=== PATIENT | female | born 1935 | race Caucasian/White ===

== ENCOUNTER → 2018-01-07 | Outpatient (CLI) | payer MEDICARE ==
[~2018-01-07] MED LIST: ALPR0.5T7 PO; ASP81EC PO; BACL10TA PO; DOXY-216 PO; HYDR-531 PO; HYDR25TA35 PO; LEVO-28 PO; LISI-707 PO; OXYB5SYP4 PO; PANT40TA2 PO; ROPI0.5T18 PO; SACC250C PO; SERT-160 PO
[2018-01-07 15:44] LABS: Basophils # (auto) 0 uL; Basophils % (auto) 0.6 % (0.0-2.0); Eosinophils # (auto) 0.1 uL; Eosinophils % (auto) 2.5 % (0.0-7.0); Hemoglobin 12.7 g/dL (12.2-16.2); Lymphocytes # (auto) 1.9 uL; Lymphocytes % (auto) 35.1 % (10.0-50.0); Mean Corpuscular Hemoglobin 31.9 pg (28.0-32.0); Mean Corpuscular Hgb Conc. 33.5 g/dL (32.0-36.0); Mean Corpuscular Volume 95.1 fL (80.0-100.0); Monocytes # (auto) 0.6 uL; Neutrophils # (auto) 2.7 uL; Neutrophils % (auto) 49.8 % (37.0-80.0); Nucleated Red Blood Cells % 0.1 %; Platelet Count (auto) 194 10^3/uL (140-450); Red Blood Cells 3.99 10^6/uL (4.0-5.20); Red Cell Distribution Width 13.6 % (11.8-14.3); White Blood Cell 5.4 10^3/uL (4.4-10.8)
[2018-01-07 15:52] LABS: Urine Bacteria NONE SEEN /hpf (None Seen); Urine Blood 1+ /uL (Negative); Urine Mucus FEW (None Seen); Urine Specific Gravity 1.019 (1.001-1.035); Urine WBC 7 /hpf (0 - 5)
[2018-01-07 15:54] LABS: INR 0.96 (0.9-1.15); Partial Thromboplastin Time 27.5 sec (22.64-33.71); Prothrombin Time 10.5 sec (9.37-12.3)
[2018-01-07 16:14] LABS: Albumin 3.9 g/dL (3.4-5.0); BUN/Creatinine Ratio 17.6; Bilirubin, Total 0.5 mg/dL (0.2-1.0); Potassium 3.9 mmol/L (3.5-5.1); Total Protein 7.1 g/dL (6.4-8.2)
== END | disposition home or self-care (01) ==
LOC: LAB 14:49
PROVIDERS: ATTEND Orthopaedic Surgery
DX: S83.242A Other tear of medial meniscus, current injury, left knee, initial encounter (principal); M12.262 Villonodular synovitis (pigmented), left knee; M71.22 Synovial cyst of popliteal space [Baker], left knee; Z79.01 Long term (current) use of anticoagulants; X58.XXXA Exposure to other specified factors, initial encounter; Y93.89 Activity, other specified; Y92.89 Other specified places as the place of occurrence of the external cause; Y99.8 Other external cause status
CPT/HCPCS: 36415; 80053; 81001; 85025; 85610; 85730

== ENCOUNTER 2019-02-09 04:48 | Inpatient (IN) | payer MEDICARE | END 2019-02-11 18:43 | disposition home or self-care (01) | LOC: ER 04:48 → TELE 10:24 → TELE-WESTW 17:30 | PROC: B2151ZZ Fluoroscopy of Left Heart using Low Osmolar Contrast (ICD-10-PCS; principal; ~2019-02-09) | PROC: 4A023N7 Measurement of Cardiac Sampling and Pressure, Left Heart, Percutaneous Approach (ICD-10-PCS; ~2019-02-09) | PROC: B2111ZZ Fluoroscopy of Multiple Coronary Arteries using Low Osmolar Contrast (ICD-10-PCS; ~2019-02-09) | DX: I21.4 Non-ST elevation (NSTEMI) myocardial infarction (principal); J96.90 Respiratory failure, unspecified, unspecified whether with hypoxia or hypercapnia; N17.0 Acute kidney failure with tubular necrosis; I11.9 Hypertensive heart disease without heart failure; J44.9 Chronic obstructive pulmonary disease, unspecified; F32.9 Major depressive disorder, single episode, unspecified; F41.9 Anxiety disorder, unspecified; E78.5 Hyperlipidemia, unspecified; Z99.81 Dependence on supplemental oxygen; K21.9 Gastro-esophageal reflux disease without esophagitis ==

== ENCOUNTER 2019-02-23 08:34 | Inpatient (IN) | payer MEDICARE ==
[~2019-02-23] VITALS: Ht 160 cm; Wt 57.0 kg
[~2019-02-23 08:34] MED LIST changes: +ATOR20TA50 PO; +CLOP75TA28 PO; +HYDR-4296 PO; -HYDR25TA35 PO
[2019-02-23 09:14] LABS: Basophils # (auto) 0.1 uL; Basophils % (auto) 1.1 % (0.0-2.0); Eosinophils # (auto) 0 uL; Eosinophils % (auto) 0.5 % (0.0-7.0); Hematocrit 40.4 % (36.0-46.0); Hemoglobin 13.3 g/dL (12.2-16.2); Lymphocytes # (auto) 1.3 uL; Lymphocytes % (auto) 15.7 % (10.0-50.0); Mean Corpuscular Hemoglobin 31.5 pg (28.0-32.0); Mean Corpuscular Hgb Conc. 32.9 g/dL (32.0-36.0); Mean Corpuscular Volume 95.5 fL (80.0-100.0); Monocytes # (auto) 0.6 uL; Monocytes % (auto) 7.1 % (0.0-12.0); Neutrophils # (auto) 6.2 uL; Neutrophils % (auto) 75.6 % (37.0-80.0); Platelet Count (auto) 312 10^3/uL (140-450); Red Blood Cells 4.23 10^6/uL (4.0-5.20); Red Cell Distribution Width 13.7 % (11.8-14.3); White Blood Cell 8.3 10^3/uL (4.4-10.8)
[2019-02-23] MEDS ORDERED: OXYC-102 PO (09:26)
[2019-02-23] MEDS ORDERED: METO25TA5 PO (09:26)
[2019-02-23] MEDS ORDERED: FENT25DI2 TD (09:26)
[2019-02-23] MEDS ORDERED: OXYB5TAB61 PO (09:26)
[2019-02-23] MEDS ORDERED: PANT40T PO (09:26)
[2019-02-23 09:41] LABS: INR 0.96 (0.9-1.15); Partial Thromboplastin Time 26.4 sec (23.78-33.04); Prothrombin Time 10.3 sec (9.27-12.13)
[2019-02-23 09:49] LABS: BUN/Creatinine Ratio 15.6; Calcium 9.4 mg/dL (8.5-10.1); Potassium 4.3 mmol/L (3.5-5.1)
[2019-02-23] MEDS ORDERED: MIDAZOLAM HCL 1MG/1ML-2 ML VIAL IV ONE (09:50)
[2019-02-23] MEDS ORDERED: fentaNYL CITRATE 100 MCG/2 ML VL IV ONE (09:50)
[2019-02-23] MEDS ORDERED: MIDAZOLAM HCL 1MG/1ML-2 ML VIAL ONE (09:54)
[2019-02-23] MEDS ORDERED: fentaNYL CITRATE 100 MCG/2 ML VL ONE (10:12)
[2019-02-23] MEDS ORDERED: THROMBIN (BOVINE) 5000 UNIT SOL VIAL ONE (10:22)
[2019-02-23] MEDS ORDERED: THROMBIN (BOVINE) 5000 UNIT SOL VIAL TP ONE (10:30)
[2019-02-23] MEDS ORDERED: ONDANSETRON HCL 4 MG/2 ML VIAL IV PRN (11:15)
[2019-02-23] MEDS ORDERED: MORPHINE SULF INJ 2 MG/ML SYRINGE 1ML IV PRN (11:15)
[2019-02-23] MEDS ORDERED: ALPRAZolam 0.5 MG TAB PO PRN (11:15)
[2019-02-23] MEDS ORDERED: ACETAMINOPHEN 500 MG TAB PO PRN (11:15)
[2019-02-23] MEDS ORDERED: NITROGLYCERIN 0.4 MG SL TAB SL PRN (11:15)
[2019-02-23] MEDS ORDERED: ROPINIROLE HYDROCHLORIDE 1 MG PO PRN (11:15)
[2019-02-23] MEDS ORDERED: fentaNYL 25MCG/HR 25 MCG/HR PAT TD SCH (11:45)
--- NOTE | 2019-02-23 12:15 | NUR ---
MS admit from [employer] In[employer] VARGHESE REGALADO admitted to MS after SBAR received. Patient oriented to Jennifer osullivan RN, unit, room, bed, and unit policies regarding patient care and visiting hours. Patient weighed by bedscale and encouraged to call if they need something. All questions and concerns addressed, patient verbalized understanding. Pulse checked to right foot, pulse palpable and strong.
[2019-02-23 13:13] VITALS: BP 153/67
[2019-02-23] MEDS: OXYCODONE W/ ACETAMINOPHEN 5/325MG TABLET PO PRN (13:49)
[2019-02-23] MEDS: SODIUM CHLOR 0.9% PF (SALINE LOCK) 10ML VIAL/SYR IV SCH ×2 (14:11→22:02)
--- NOTE | 2019-02-23 18:38 | NUR ---
END OF SHIFT PATIENT RESTING IN BED. NO S/S OF DISTRESS. INSTRUCTED PATIENT TO CALL PRN. BED IN LOWEST LOCKED POSITION, CALL LIGHT WITHIN REACH. ENDORSED CARE TO LAMBERT HANCOCK.
--- NOTE | 2019-02-23 19:40 | NUR ---
Opening Shift Note Assumed care of patient, awake and alert. No S/S of distress/SOB or pain. Instructed on POC and to call for assist PRN. Bed in lowest locked position, call light within reach, side rails up x2, fall precautions in place. Will continue to monitor for changes Q1hr and PRN.
[2019-02-23 21:38] VITALS: BP 152/68
[2019-02-23] MEDS: METOPROLOL TARTRATE 25 MG TAB PO SCH (22:00)
[2019-02-23] MEDS ORDERED: ATORVASTATIN 20 MG TAB PO SCH (22:00)
[2019-02-23] MEDS: OXYBUTYNIN CHL 5 MG TAB PO SCH (22:03)
[2019-02-23] MEDS: hydrALAZINE HCL 25 MG TAB PO SCH (22:03)
[2019-02-23] MEDS: BACLOFEN 10 MG TAB PO PRN (22:04)
[2019-02-24] MEDS: SODIUM CHLOR 0.9% PF (SALINE LOCK) 10ML VIAL/SYR IV SCH ×2 (06:00→13:59)
[2019-02-24] MEDS: OXYCODONE W/ ACETAMINOPHEN 5/325MG TABLET PO PRN ×2 (06:42→14:45)
[2019-02-24 09:00] VITALS: BP 181/78
[2019-02-24] MEDS: hydrALAZINE HCL 25 MG TAB PO SCH (09:29)
[2019-02-24] MEDS: OXYBUTYNIN CHL 5 MG TAB PO SCH (09:29)
[2019-02-24] MEDS: METOPROLOL TARTRATE 25 MG TAB PO SCH (09:30)
[2019-02-24] MEDS ORDERED: PANTOPRAZOLE 40 MG TAB PO SCH (10:00)
[2019-02-24] MEDS ORDERED: ASPirin-EC 81 mg tab PO SCH (10:00)
[2019-02-24] MEDS ORDERED: CLOPIDOGREL BISULFATE 75 MG TAB PO SCH (10:00)
[2019-02-24] MEDS ORDERED: SERTRALINE HCL 50 MG TAB PO SCH (10:00)
[2019-02-24 13:00] VITALS: BP 127/56
[2019-02-24 14:31] VITALS: BP 187/78
[2019-02-24] MEDS: BACLOFEN 10 MG TAB PO PRN (16:27)
== END 2019-02-24 17:45 | disposition home or self-care (01) | DRG 301 ==
LOC: CATH 08:34 → CENTRAL 12:25
PROVIDERS: ADMIT Internal Medicine; ATTEND Internal Medicine
PROC: 3E053GC Introduction of Other Therapeutic Substance into Peripheral Artery, Percutaneous Approach (ICD-10-PCS; principal; 2019-02-23)
DX: I72.4 Aneurysm of artery of lower extremity (principal); G89.29 Other chronic pain; I10 Essential (primary) hypertension; I25.10 Atherosclerotic heart disease of native coronary artery without angina pectoris; B19.20 Unspecified viral hepatitis C without hepatic coma; J44.9 Chronic obstructive pulmonary disease, unspecified; I73.9 Peripheral vascular disease, unspecified; E78.5 Hyperlipidemia, unspecified; I25.2 Old myocardial infarction; Z95.5 Presence of coronary angioplasty implant and graft; Z82.49 Family history of ischemic heart disease and other diseases of the circulatory system; Z87.891 Personal history of nicotine dependence; Z79.82 Long term (current) use of aspirin; Z79.899 Other long term (current) drug therapy; Z88.1 Allergy status to other antibiotic agents; Z88.0 Allergy status to penicillin; Z88.8 Allergy status to other drugs, medicaments and biological substances
CPT/HCPCS: 36415; 76937; 80048; 85025; 85610; 85730; 87081; 93926; G0378; J2250

== ENCOUNTER → 2019-04-13 | Outpatient (CLI) | payer MEDICARE ==
[~2019-04-13] MED LIST changes: -DOXY-216 PO; +FENT25DI2 TD; -HYDR-531 PO; -LEVO-28 PO; -LISI-707 PO; +METO25TA5 PO; -OXYB5SYP4 PO; +OXYB5TAB61 PO; +OXYC-102 PO; +PANT40T PO; -PANT40TA2 PO; -SACC250C PO
== END | disposition home or self-care (01) ==
LOC: Rad HDHVI 14:06
PROVIDERS: ATTEND Internal Medicine
DX: I70.202 Unspecified atherosclerosis of native arteries of extremities, left leg (principal)
CPT/HCPCS: 93926

== ENCOUNTER → 2019-05-10 | Outpatient (CLI) | payer MEDICARE | END | disposition home or self-care (01) | LOC: Rad HDHVI 15:08 | PROVIDERS: ATTEND Internal Medicine Cardiovascular Disease | DX: I82.401 Acute embolism and thrombosis of unspecified deep veins of right lower extremity (principal); M71.22 Synovial cyst of popliteal space [Baker], left knee | CPT/HCPCS: 93970 ==

== ENCOUNTER 2019-06-28 21:33 | Emergency (ER) | payer MEDICARE ==
[~2019-06-28] VITALS: Ht 149.9 cm; Wt 45.6 kg
[~2019-06-28 21:33] MED LIST changes: -FENT25DI2 TD
[2019-06-28 22:32] VITALS: BP 186/66
[2019-06-28 22:59] LABS: Basophils # (auto) 0 uL; Basophils % (auto) 0.5 % (0.0-2.0); Eosinophils # (auto) 0.1 uL; Eosinophils % (auto) 2.5 % (0.0-7.0); Hematocrit 38.4 % (36.0-46.0); Hemoglobin 12.6 g/dL (12.2-16.2); Lymphocytes # (auto) 1.7 uL; Lymphocytes % (auto) 32.6 % (10.0-50.0); Mean Corpuscular Hgb Conc. 32.9 g/dL (32.0-36.0); Mean Corpuscular Volume 94.2 fL (80.0-100.0); Monocytes # (auto) 0.6 uL; Neutrophils # (auto) 2.8 uL; Neutrophils % (auto) 53.4 % (37.0-80.0); Platelet Count (auto) 185 10^3/uL (140-450); Red Blood Cells 4.07 10^6/uL (4.0-5.20); Red Cell Distribution Width 15.6 % (11.8-14.3); White Blood Cell 5.2 10^3/uL (4.4-10.8)
[2019-06-28 23:15] LABS: Albumin 3.7 g/dL (3.4-5.0); BUN/Creatinine Ratio 18.7; Potassium 3.7 mmol/L (3.5-5.1)
[2019-06-28 23:20] LABS: Bilirubin, Total 0.4 mg/dL (0.2-1.0); Total Protein 6.7 g/dL (6.4-8.2)
== END 2019-06-28 21:41 | disposition left against medical advice (07) ==
LOC: ER 21:36
DX: R03.0 Elevated blood-pressure reading, without diagnosis of hypertension (principal); Z53.21 Procedure and treatment not carried out due to patient leaving prior to being seen by health care provider
CPT/HCPCS: 36415; 80053; 83880; 84484; 85025; 85379; 85610; 85730

== ENCOUNTER → 2019-06-29 | Outpatient (CLI) | payer MEDICARE ==
[2019-06-29 12:00] VITALS: BP 177/62
[2019-06-29 12:25] VITALS: BP 181/62
--- NOTE | 2019-06-29 12:25 | NUR ---
IN TO CLINIC FOR BP CHECK AFTER ER ELOPEMENT LAST NIGHT. PT REPORTS FEELING WEAK AND IS TEARY EYED WHEN DESCRIBING HER SYMPTOMS. PT BROUGHT MEDICATION FROM HOME FOR HYPERTENSION BUT MEDICATION IS FROM APRIL OF 2016. PT REPORTS THAT SHE HAS APPOINTMENT WITH DR QUINTANA FOR TOMORROW AT 1415. REVIEWED LABS AND STATUS WITH PATIENT. ENCOURAGED TO CONTINUE TAKING HER MEDICATION PRESCRIBED NOW AND TO KEEP STRESS AND ACTIVITY LOW AND FOLLOWUP WITH DR QUINTANA TOMORROW. PT TO ALSO NOT MISS DOSES OF PAIN MEDICATION SHE HAS STATED SHE HAS NOT BEEN TAKING MEDICATION REGULARLY. DISCHARGED TO CARE OF DAUGHTER IN NO DISTRESS OR DISCOMFORT .
== END | disposition home or self-care (01) ==
LOC: CHF HDHVI 11:51
PROVIDERS: ATTEND Internal Medicine Cardiovascular Disease
DX: I10 Essential (primary) hypertension (principal); F41.8 Other specified anxiety disorders; G89.29 Other chronic pain
CPT/HCPCS: G0463

== ENCOUNTER → 2019-07-05 | Outpatient (CLI) | payer MEDICARE ==
[~2019-07-05] MED LIST changes: +CLON0.1T PO; +[UNRECOGNIZED DRUG - CODE] OP
[2019-07-05 11:50] VITALS: BP 157/49
--- NOTE | 2019-07-05 11:50 | NUR ---
PT. TO [facility]F CLINIC WITH CAREGIVER AFTER CONTINUED BRADYCARDIA. PT STATES SHE DENIES DIZZINESS, JUST FEELS TIRED. HEMODYNAMICALLY STABLE WITH B/P, BUT PULSE AT 42 /MIN. PT. STATES SHE TOOK METOPROLOL THIS AM, SAYING IT WAS PRINTED ON BOTTLE TO TAKE IF B/P WAS GREATER THAN 170 SYSTOLIC. PT. HAS PREVIOSLY BEEN INSTRUCTED BY DR. QUINTANA TO HOLD METOPROLOL UNTIL HR IMPROVED, AND THIS WAS ENDORSED BY THIS RN, AND HOME HEALTH RN LAST SAT. ON VISIT. PRESENT CAREGIVER WILL TAKE PICS OF BOTH OF THIS MED AND ALSO CLONIDINE 0.1MG PO TID PRN IF SBP GREATER THAN 170, WHICH WAS THE ORDER FROM DR. QUINTANA. NEW ORDERS RECEIVED AND CARRIED OUT.
--- NOTE | 2019-07-05 12:10 | NUR ---
EKG DONE WITH RESULTS TO DR. QUINTANA AND RECENT MED REC NON COMPLIANCE BY PT. NO FURTHER ORDERS RECEIVED SINCE PT. IS HEMODYNAMICALLY STABLE.
--- NOTE | 2019-07-05 12:20 | NUR ---
LABS DRAWN AND SENT PER MD ORDER.
[2019-07-05 12:40] VITALS: BP 158/63
--- NOTE | 2019-07-05 12:40 | NUR ---
Discharge Instructions See e-MAR for any mediations given with this visit. Patient education given on disease process. Patient verbalized understanding. Previous labs reviewed. Patient discharged in stable condition with after care instructions and follow up appointment. PT. TO RTC ON THURSDAY FOR PRE OP.
[2019-07-05 13:39] LABS: Basophils # (auto) 0 uL; Basophils % (auto) 0.6 % (0.0-2.0); Eosinophils # (auto) 0.1 uL; Eosinophils % (auto) 1.4 % (0.0-7.0); Hematocrit 35.2 % (36.0-46.0); Hemoglobin 11.6 g/dL (12.2-16.2); Lymphocytes # (auto) 1.6 uL; Lymphocytes % (auto) 38.4 % (10.0-50.0); Mean Corpuscular Hemoglobin 31.2 pg (28.0-32.0); Mean Corpuscular Hgb Conc. 33.1 g/dL (32.0-36.0); Mean Corpuscular Volume 94.3 fL (80.0-100.0); Monocytes # (auto) 0.6 uL; Monocytes % (auto) 13.2 % (0.0-12.0); Neutrophils % (auto) 46.4 % (37.0-80.0); Nucleated Red Blood Cells % 0.4 %; Platelet Count (auto) 154 10^3/uL (140-450); Red Blood Cells 3.73 10^6/uL (4.0-5.20); Red Cell Distribution Width 15.3 % (11.8-14.3); White Blood Cell 4.2 10^3/uL (4.4-10.8)
[2019-07-05 13:55] LABS: Albumin 3.3 g/dL (3.4-5.0); BUN/Creatinine Ratio 22.3; Calcium 8.3 mg/dL (8.5-10.1); Magnesium 2.5 mg/dL (1.6-2.6); Potassium 4.2 mmol/L (3.5-5.1)
[2019-07-05 13:58] LABS: Bilirubin, Total 0.3 mg/dL (0.2-1.0); Total Protein 6.4 g/dL (6.4-8.2)
== END | disposition home or self-care (01) ==
LOC: CHF HDHVI 11:37
PROVIDERS: ATTEND Internal Medicine Cardiovascular Disease
DX: D64.9 Anemia, unspecified (principal); E83.40 Disorders of magnesium metabolism, unspecified; R00.1 Bradycardia, unspecified; I25.10 Atherosclerotic heart disease of native coronary artery without angina pectoris; I11.9 Hypertensive heart disease without heart failure; R94.31 Abnormal electrocardiogram [ECG] [EKG]
CPT/HCPCS: 36415; 80053; 82306; 83735; 85025; 93005; G0463

== ENCOUNTER → 2019-07-08 | Outpatient (CLI) | payer MEDICARE ==
[2019-07-08 11:30] VITALS: BP 181/85
[2019-07-08 12:12] VITALS: BP 184/72
--- NOTE | 2019-07-08 12:12 | NUR ---
IN FOR PRE-OP EVALUATION FOR [facility] TO BE DONE ON 07/13/19. PT WAS SEEN BY DR QUINTANA THIS WEEK WITH KNOWN BRADYCARDIA AND KNOWN HYPERTENSION. MD REPORTS THAT BP MED TO BE CHANGED POST PROCEDURE, AWARE OF JUST ON SHORT ACTING MED FOR BP CURRENTLY ( REPORTED BY MONICA, AND PT IS CURRENTLY HOLDING METOPROLOL). OF CURRENTLY, 2 DOSES HELD. CAREGIVER IN ATTENDANCE. Pre-Op Discharge Summary: See e-MAR for any medications given for this visit. Pre-op orders received and carried out per MD of EKG, LABS and chest xrays. Patient given a copy of EKG with instructions to go to [facility] out patient for further follow up care.
[2019-07-08 15:17] LABS: Basophils # (auto) 0 uL; Basophils % (auto) 0.8 % (0.0-2.0); Eosinophils # (auto) 0.1 uL; Eosinophils % (auto) 3.3 % (0.0-7.0); Hematocrit 36.5 % (36.0-46.0); Hemoglobin 12.3 g/dL (12.2-16.2); Lymphocytes # (auto) 1.7 uL; Lymphocytes % (auto) 44.2 % (10.0-50.0); Mean Corpuscular Hemoglobin 31.5 pg (28.0-32.0); Mean Corpuscular Hgb Conc. 33.6 g/dL (32.0-36.0); Mean Corpuscular Volume 93.6 fL (80.0-100.0); Monocytes # (auto) 0.4 uL; Monocytes % (auto) 11.2 % (0.0-12.0); Neutrophils # (auto) 1.6 uL; Neutrophils % (auto) 40.5 % (37.0-80.0); Nucleated Red Blood Cells % 0.2 %; Platelet Count (auto) 142 10^3/uL (140-450); White Blood Cell 3.9 10^3/uL (4.4-10.8)
[2019-07-08 15:20] LABS: BUN/Creatinine Ratio 20.4; Calcium 8.7 mg/dL (8.5-10.1); Potassium 4.2 mmol/L (3.5-5.1)
[2019-07-08 15:32] LABS: INR 0.98 (0.9-1.15); Partial Thromboplastin Time 27.3 sec (23.64-32.05)
== END | disposition home or self-care (01) ==
LOC: Rad HDHVI 11:11
PROVIDERS: ATTEND Internal Medicine
DX: Z01.812 Encounter for preprocedural laboratory examination (principal); D64.9 Anemia, unspecified; R79.1 Abnormal coagulation profile; I70.0 Atherosclerosis of aorta; I11.9 Hypertensive heart disease without heart failure
CPT/HCPCS: 36415; 71046; 80048; 85025; 85610; 85730; 93005; G0463

== ENCOUNTER 2019-07-13 07:38 | Day surgery (SDC) | payer MEDICARE ==
[~2019-07-13] VITALS: Ht 149.9 cm; Wt 46.7 kg
[~2019-07-13 07:38] MED LIST changes: -METO25TA5 PO
[2019-07-13] MEDS ORDERED: IODIXANOL 320MG/ML 100ML BTL IV ONE (08:00)
[2019-07-13] MEDS ORDERED: LIDOCAINE 2%HCL (LOCAL ANESTH.) INJ 20ML MDV ONE (08:00)
[2019-07-13] MEDS ORDERED: MIDAZOLAM HCL 1MG/1ML-2 ML VIAL ONE (09:12)
[2019-07-13] MEDS ORDERED: ANGIOMAX 250 MG VIAL IV ONE (09:12)
[2019-07-13] MEDS ORDERED: fentaNYL CITRATE 100 MCG/2 ML VL ONE (09:12)
[2019-07-13] MEDS ORDERED: SODIUM CHL 0.9% 0 ML ONE (09:12)
[2019-07-13] MEDS ORDERED: hydrALAZINE HCL 20 MG/ML VL ONE (09:43)
[2019-07-13] MEDS ORDERED: ONDANSETRON HCL 4 MG/2 ML VIAL IV PRN (10:30)
[2019-07-13] MEDS ORDERED: ACETAMINOPHEN 500 MG TAB PO PRN (10:30)
[2019-07-13] MEDS ORDERED: HYDROcodone-ACET 5/325MG TAB PO PRN (10:30)
== END 2019-07-13 12:26 | disposition home or self-care (01) ==
LOC: CATH 07:38
PROVIDERS: ATTEND Internal Medicine
DX: I70.212 Atherosclerosis of native arteries of extremities with intermittent claudication, left leg (principal); I70.291 Other atherosclerosis of native arteries of extremities, right leg; I25.10 Atherosclerotic heart disease of native coronary artery without angina pectoris; I10 Essential (primary) hypertension; E78.5 Hyperlipidemia, unspecified; I21.9 Acute myocardial infarction, unspecified; J44.9 Chronic obstructive pulmonary disease, unspecified; Z87.891 Personal history of nicotine dependence; Z79.82 Long term (current) use of aspirin; Z79.01 Long term (current) use of anticoagulants; Z79.899 Other long term (current) drug therapy; Z86.19 Personal history of other infectious and parasitic diseases; Z88.8 Allergy status to other drugs, medicaments and biological substances; Z88.0 Allergy status to penicillin
CPT/HCPCS: 36200; 75630; C1760; C1769; C1894; J0360; J1644; J2250; J3010; Q9967; 99152

== ENCOUNTER → 2019-09-19 | Outpatient (CLI) | payer MEDICARE ==
[~2019-09-19] MED LIST changes: +CALC-440 PO; +CYAN100056 PO; +FLUT1SPR5; -[UNRECOGNIZED DRUG - CODE] OP; +[UNRECOGNIZED DRUG - CODE] PO
== END | disposition home or self-care (01) ==
LOC: Rad HDHVI 09:44
PROVIDERS: ATTEND Internal Medicine
DX: I82.402 Acute embolism and thrombosis of unspecified deep veins of left lower extremity (principal)
CPT/HCPCS: 93970

== ENCOUNTER → 2020-04-16 | Outpatient (CLI) | payer MEDICARE, BC | END | disposition home or self-care (01) | LOC: Rad HDHVI 15:07 | PROVIDERS: ATTEND Internal Medicine | DX: I07.1 Rheumatic tricuspid insufficiency (principal); I10 Essential (primary) hypertension; I25.10 Atherosclerotic heart disease of native coronary artery without angina pectoris; J96.11 Chronic respiratory failure with hypoxia; I05.0 Rheumatic mitral stenosis; I35.0 Nonrheumatic aortic (valve) stenosis; I35.8 Other nonrheumatic aortic valve disorders | CPT/HCPCS: 93306 ==

== ENCOUNTER → 2020-04-24 | Outpatient (CLI) | payer MEDICARE, BC ==
[~2020-04-24] VITALS: Ht 149.9 cm; Wt 50.8 kg
[~2020-04-24] MED LIST changes: +ADENOSINE 43 MG in GIVE UN-DILUTED 0 ML IV ONE; +ADENOSINE 90 MG/30 ML INJ IV ONE; -ASP81EC PO; +ASPI-394 PO
== END | disposition home or self-care (01) ==
LOC: Rad HDHVI 14:04
PROVIDERS: ATTEND Internal Medicine Cardiovascular Disease
DX: I25.10 Atherosclerotic heart disease of native coronary artery without angina pectoris (principal); I10 Essential (primary) hypertension; E78.00 Pure hypercholesterolemia, unspecified; I25.2 Old myocardial infarction; R07.9 Chest pain, unspecified; Z82.49 Family history of ischemic heart disease and other diseases of the circulatory system
CPT/HCPCS: 78452; 93005; 96374; 96375; A9500; J0153

== ENCOUNTER → 2020-06-19 | Outpatient (CLI) | payer MEDICARE, BC ==
[~2020-06-19] MED LIST changes: -ADENOSINE 43 MG in GIVE UN-DILUTED 0 ML IV ONE; -ADENOSINE 90 MG/30 ML INJ IV ONE
== END | disposition home or self-care (01) ==
LOC: Rad HDHVI 15:06
PROVIDERS: ATTEND Internal Medicine
DX: M19.032 Primary osteoarthritis, left wrist (principal); M79.602 Pain in left arm
CPT/HCPCS: 73090

== ENCOUNTER → 2021-02-11 | Outpatient (CLI) | payer MEDICARE, BC ==
[2021-02-11 12:05] LABS: Basophils # (auto) 0 10 ^3/uL (0-0.2); Basophils % (auto) 0.6 % (0.0-2.0); Eosinophils # (auto) 0.1 10 ^3/uL (0-0.8); Eosinophils % (auto) 2.8 % (0.0-7.0); Hematocrit 37.6 % (36.0-46.0); Hemoglobin 12.8 g/dL (12.2-16.2); Lymphocytes # (auto) 1.6 10 ^3/uL (0.4-5.4); Lymphocytes % (auto) 40.1 % (10.0-50.0); Mean Corpuscular Hemoglobin 32.5 pg (28.0-32.0); Mean Corpuscular Hgb Conc. 34.1 g/dL (32.0-36.0); Mean Corpuscular Volume 95.3 fL (80.0-100.0); Monocytes # (auto) 0.5 10 ^3/uL (0-1.3); Monocytes % (auto) 13.4 % (0.0-12.0); Neutrophils # (auto) 1.7 10 ^3/uL (1.6-8.6); Neutrophils % (auto) 43.1 % (37.0-80.0); Nucleated Red Blood Cells % 0.2 %; Platelet Count (auto) 175 10^3/uL (140-450); Red Blood Cells 3.95 10^6/uL (4.0-5.20); Red Cell Distribution Width 14.5 % (11.8-14.3)
[2021-02-11 12:16] LABS: Urine Blood Negative /uL (Negative); Urine Specific Gravity 1.014 (1.001-1.035)
[2021-02-11 13:47] LABS: Albumin 3.7 g/dL (3.4-5.0); BUN/Creatinine Ratio 25.6; Bilirubin, Total 0.4 mg/dL (0.2-1.0); Calcium 9.2 mg/dL (8.5-10.1); Total Protein 6.8 g/dL (6.4-8.2)
[2021-02-11 15:03] LABS: Free T4 (Free Thyroxine) 1.05 ng/dL (0.89-1.76)
== END | disposition home or self-care (01) ==
LOC: LAB 10:27
PROVIDERS: ATTEND Internal Medicine
DX: D51.3 Other dietary vitamin B12 deficiency anemia (principal); D64.9 Anemia, unspecified; E11.9 Type 2 diabetes mellitus without complications; E55.9 Vitamin D deficiency, unspecified; R30.0 Dysuria; R00.2 Palpitations; R53.1 Weakness
CPT/HCPCS: 36415; 80053; 80061; 81003; 82306; 82550; 82607; 83036; 84439; 84443; 85025; 87086

== ENCOUNTER → 2021-06-19 | Outpatient (CLI) | payer MEDICARE, BC ==
[~2021-06-19] VITALS: Ht 149.9 cm; Wt 53.1 kg
[~2021-06-19] MED LIST changes: +ADENOSINE 45 MG in GIVE UN-DILUTED 0 ML IV ONE; +ADENOSINE 90 MG/30 ML INJ IV ONE
== END | disposition home or self-care (01) ==
LOC: Rad HDHVI 13:50
PROVIDERS: ATTEND Internal Medicine
DX: I25.10 Atherosclerotic heart disease of native coronary artery without angina pectoris (principal); I10 Essential (primary) hypertension; E78.00 Pure hypercholesterolemia, unspecified; I25.2 Old myocardial infarction; R07.9 Chest pain, unspecified; Z82.49 Family history of ischemic heart disease and other diseases of the circulatory system
CPT/HCPCS: 78452; 93005; 96374; 96375; A9500; J0153

== ENCOUNTER → 2021-06-20 | Outpatient (CLI) | payer MEDICARE, BC ==
[~2021-06-20] MED LIST changes: -ADENOSINE 45 MG in GIVE UN-DILUTED 0 ML IV ONE; -ADENOSINE 90 MG/30 ML INJ IV ONE
== END | disposition home or self-care (01) ==
LOC: Rad HDHVI 12:48
PROVIDERS: ATTEND Internal Medicine
DX: I08.1 Rheumatic disorders of both mitral and tricuspid valves (principal); E78.5 Hyperlipidemia, unspecified; I11.9 Hypertensive heart disease without heart failure; I48.91 Unspecified atrial fibrillation
CPT/HCPCS: 93306

== ENCOUNTER 2021-12-25 12:14 | Emergency (ER) | payer BC, MEDICARE, OTHER ==
[~2021-12-25] VITALS: Ht 149.9 cm; Wt 49.9 kg
[2021-12-25] MEDS ORDERED: ONDANSETRON HCL 4 MG/2 ML VIAL IV ONE (16:00)
[2021-12-25] MEDS ORDERED: MORPHINE SULFATE INJECTION 2 MG/ML SYRG IV ONE (16:00)
[2021-12-25] MEDS ORDERED: DexAMETHasone SOD PHOS 10MG/1ML VIAL INJ IV ONE (16:00)
[2021-12-25] MEDS ORDERED: SODIUM CHLORIDE 0.9% 1,000 ML IV ONE (16:00)
[2021-12-25 17:07] LABS: Basophils # (auto) 0 10 ^3/uL (0-0.2); Basophils % (auto) 0.6 % (0.0-2.0); Eosinophils # (auto) 0.1 10 ^3/uL (0-0.8); Eosinophils % (auto) 0.9 % (0.0-7.0); Hematocrit 38.4 % (36.0-46.0); Hemoglobin 12.9 g/dL (12.2-16.2); Lymphocytes # (auto) 2.1 10 ^3/uL (0.4-5.4); Lymphocytes % (auto) 30.1 % (10.0-50.0); Mean Corpuscular Hemoglobin 31.8 pg (28.0-32.0); Mean Corpuscular Hgb Conc. 33.5 g/dL (32.0-36.0); Monocytes # (auto) 0.8 10 ^3/uL (0-1.3); Monocytes % (auto) 11.4 % (0.0-12.0); Neutrophils # (auto) 3.9 10 ^3/uL (1.6-8.6); Nucleated Red Blood Cells % 0.1 %; Red Blood Cells 4.05 10^6/uL (4.0-5.20); Red Cell Distribution Width 14.7 % (11.8-14.3); White Blood Cell 6.9 10^3/uL (4.4-10.8)
[2021-12-25 17:28] LABS: Albumin 3.9 g/dL (3.4-5.0); Calcium 9.3 mg/dL (8.5-10.1); INR 1.03 (0.9-1.15); Magnesium 2.2 mg/dL (1.6-2.6); Partial Thromboplastin Time 27.1 sec (23.6-33.0); Potassium 3.7 mmol/L (3.5-5.1)
[2021-12-25 17:32] LABS: BUN/Creatinine Ratio 21.4; Bilirubin, Total 0.7 mg/dL (0.2-1.0); Total Protein 7.3 g/dL (6.4-8.2)
[2021-12-25] MEDS ORDERED: LORazepam 2MG/ML-1ML VIAL IV ONE (18:00)
[2021-12-25 22:35] VITALS: BP 136/50
== END 2021-12-25 23:14 | disposition short-term general hospital (02) ==
LOC: ER 12:17
DX: S12.112A Nondisplaced Type II dens fracture, initial encounter for closed fracture (principal); S13.120A Subluxation of C1/C2 cervical vertebrae, initial encounter; C34.91 Malignant neoplasm of unspecified part of right bronchus or lung; J43.2 Centrilobular emphysema; F41.1 Generalized anxiety disorder; I10 Essential (primary) hypertension; M13.0 Polyarthritis, unspecified; Z20.822 Contact with and (suspected) exposure to COVID-19; Z90.89 Acquired absence of other organs; Z90.710 Acquired absence of both cervix and uterus; Z88.0 Allergy status to penicillin; Z88.1 Allergy status to other antibiotic agents; Z79.899 Other long term (current) drug therapy; W19.XXXA Unspecified fall, initial encounter; Y93.89 Activity, other specified; Y92.89 Other specified places as the place of occurrence of the external cause; Y99.8 Other external cause status
CPT/HCPCS: 36415; 70450; 71250; 72125; 80053; 83735; 85025; 85610; 85730; 87426; 93005; 96361; 96374; 96375; 99285; J1100; J2060; J2270; J2405; J7030

== ENCOUNTER 2022-02-24 11:08 | Inpatient (IN) | payer BC, MEDICARE, OTHER ==
[~2022-02-24] VITALS: Ht 149.9 cm; Wt 55.1 kg
[2022-02-24] MEDS ORDERED: MORPHINE SULFATE INJECTION 2 MG/ML SYRG IV ONE ×2 (11:30→13:00)
[2022-02-24] MEDS ORDERED: ONDANSETRON HCL 4 MG/2 ML VIAL IV ONE (11:30)
[2022-02-24] MEDS ORDERED: CLINDAMYCIN 300MG IV 50 ML IV ONE (11:30)
[2022-02-24 12:12] LABS: Basophils # (auto) 0 10 ^3/uL (0-0.2); Basophils % (auto) 0.5 % (0.0-2.0); Eosinophils # (auto) 0.1 10 ^3/uL (0-0.8); Eosinophils % (auto) 2.6 % (0.0-7.0); Hematocrit 35.9 % (36.0-46.0); Lymphocytes # (auto) 1.1 10 ^3/uL (0.4-5.4); Lymphocytes % (auto) 30.9 % (10.0-50.0); Mean Corpuscular Hgb Conc. 33.3 g/dL (32.0-36.0); Mean Corpuscular Volume 95.9 fL (80.0-100.0); Monocytes # (auto) 0.4 10 ^3/uL (0-1.3); Monocytes % (auto) 11.1 % (0.0-12.0); Neutrophils # (auto) 1.9 10 ^3/uL (1.6-8.6); Neutrophils % (auto) 54.9 % (37.0-80.0); Nucleated Red Blood Cells % 0.1 %; Red Blood Cells 3.74 10^6/uL (4.0-5.20); Red Cell Distribution Width 14.7 % (11.8-14.3); White Blood Cell 3.5 10^3/uL (4.4-10.8)
[2022-02-24 12:36] LABS: Albumin 3.5 g/dL (3.4-5.0); BUN/Creatinine Ratio 23.2
[2022-02-24 12:39] LABS: Bilirubin, Total 0.7 mg/dL (0.2-1.0)
[2022-02-24 15:10] LABS: Urine Bacteria FEW /hpf (None Seen); Urine Blood Negative /uL (Negative); Urine Mucus FEW (None Seen); Urine Specific Gravity 1.016 (1.001-1.035); Urine WBC 1 /hpf (0 - 5)
[2022-02-24] MEDS ORDERED: NITROGLYCERIN 0.4 MG SL TAB SL PRN (15:15)
[2022-02-24] MEDS ORDERED: CLINDAMYCIN 600MG IV 50 ML IV ONE (15:15)
[2022-02-24] MEDS ORDERED: AZTREONAM 1GM INJ 1 GM in D5W 5% 50 ML IV ONE ×2 (15:15→17:30)
[2022-02-24] MEDS ORDERED: MORPHINE SULFATE INJECTION 2 MG/ML SYRG IV PRN (15:15)
[2022-02-24] MEDS ORDERED: HYDROmorphone HCL 2 MG/ML VL IV PRN (16:30)
[2022-02-24] MEDS ORDERED: HYDROmorphone HCL 2 MG/ML VL IV ONE (16:30)
[2022-02-24 16:40] LABS: INR 1.03 (0.9-1.15); Partial Thromboplastin Time 27.4 sec (23.6-33.0)
[2022-02-24] MEDS ORDERED: IOHEXOL 350 MG/ML 100ML IJ ONE (17:29)
[2022-02-24] MEDS ORDERED: BACLOFEN 10 MG TAB PO PRN (18:30)
[2022-02-24] MEDS ORDERED: FAMOTIDINE (10MG/ML) 2ML VL IV ONE (18:30)
[2022-02-24] MEDS ORDERED: MULTIPLE VITAMINS W/ MINERALS TAB PO ONE (18:45)
[2022-02-24] MEDS ORDERED: LACTULOSE 20Gm/30ML SOLN PO PRN (18:45)
[2022-02-24] MEDS ORDERED: DOCUSATE SOD 100 MG CAP PO PRN (18:45)
[2022-02-24] MEDS ORDERED: HYDROcodone-ACET 5/325MG TAB PO ONE (18:45)
[2022-02-24] MEDS ORDERED: hydrALAZINE HCL 20 MG/ML VL IV PRN (18:45)
[2022-02-24] MEDS ORDERED: ACETAMINOPHEN 325 MG TAB PO PRN (18:45)
[2022-02-24] MEDS ORDERED: IPRATROPIUM BROM 0.5 MG/2.5ML INH SOL NEB ONE (18:45)
[2022-02-24 18:51] LABS: Magnesium 1.9 mg/dL (1.6-2.6); Phosphorus 3.4 mg/dL (2.5-4.90)
[2022-02-24] MEDS: OXYBUTYNIN CHL 5 MG TAB PO SCH (21:40)
[2022-02-24] MEDS: ALPRAZolam 0.5 MG TAB PO PRN (21:40)
[2022-02-24] MEDS: ATORVASTATIN 20 MG TAB PO SCH (21:40)
[2022-02-24] MEDS: hydrALAZINE HCL 25 MG TAB PO SCH (21:41)
[2022-02-24] MEDS: CLINDAMYCIN 600MG IV 50 ML IV SCH (21:42)
[2022-02-24 21:51] VITALS: BP 106/59
[2022-02-24] MEDS: IPRATROPIUM BROM 0.5 MG/2.5ML INH SOL NEB SCH (21:58)
[2022-02-24] MEDS ORDERED: CILOSTAZOL 100 MG TAB PO SCH (22:00)
[2022-02-24] MEDS: ROPINIROLE 0.5 MG PO SCH (22:00)
[2022-02-24] MEDS: FLUTICASONE PROP NASAL SPR 0.05 % (50MCG) 16GM SCH (22:15)
[2022-02-24 22:31] VITALS: BP 106/59
[2022-02-25] MEDS: HYDROcodone-ACET 5/325MG TAB PO PRN ×3 (00:32→14:32)
[2022-02-25] MEDS: AZTREONAM 1GM INJ 1 GM in D5W 5% 50 ML IV SCH ×2 (01:00→06:38)
[2022-02-25] MEDS: IPRATROPIUM BROM 0.5 MG/2.5ML INH SOL NEB SCH ×6 (02:00→22:19)
[2022-02-25 05:00] VITALS: BP 157/62
[2022-02-25] MEDS: CLINDAMYCIN 600MG IV 50 ML IV SCH ×3 (05:05→21:05)
[2022-02-25] MEDS: ALPRAZolam 0.5 MG TAB PO PRN ×2 (05:12→21:07)
[2022-02-25 05:21] LABS: Basophils # (auto) 0 10 ^3/uL (0-0.2); Basophils % (auto) 0.4 % (0.0-2.0); Eosinophils # (auto) 0.1 10 ^3/uL (0-0.8); Eosinophils % (auto) 3.2 % (0.0-7.0); Hematocrit 32.1 % (36.0-46.0); Hemoglobin 10.7 g/dL (12.2-16.2); Lymphocytes # (auto) 1.4 10 ^3/uL (0.4-5.4); Lymphocytes % (auto) 43.3 % (10.0-50.0); Mean Corpuscular Hgb Conc. 33.4 g/dL (32.0-36.0); Mean Corpuscular Volume 95.9 fL (80.0-100.0); Monocytes # (auto) 0.4 10 ^3/uL (0-1.3); Monocytes % (auto) 11.5 % (0.0-12.0); Neutrophils # (auto) 1.3 10 ^3/uL (1.6-8.6); Neutrophils % (auto) 41.6 % (37.0-80.0); Nucleated Red Blood Cells % 0.3 %; Red Blood Cells 3.35 10^6/uL (4.0-5.20); Red Cell Distribution Width 14.8 % (11.8-14.3); White Blood Cell 3.2 10^3/uL (4.4-10.8)
[2022-02-25] MEDS: HYDROmorphone HCL 2 MG/ML VL IV PRN ×2 (05:22→17:26)
[2022-02-25 05:39] LABS: INR 1.06 (0.9-1.15); Partial Thromboplastin Time 28.2 sec (23.6-33.0)
[2022-02-25 05:44] LABS: Albumin 2.8 g/dL (3.4-5.0); Calcium 8.3 mg/dL (8.5-10.1); Magnesium 1.8 mg/dL (1.6-2.6); Potassium 4.3 mmol/L (3.5-5.1); Uric Acid 4.7 mg/dL (2.6-6.0)
[2022-02-25 05:50] LABS: Bilirubin, Total 0.4 mg/dL (0.2-1.0); CRP High Sensitivity 0.88 mg/dL (< 0.3); Phosphorus 5.1 mg/dL (2.5-4.90); Total Protein 5.9 g/dL (6.4-8.2)
[2022-02-25 05:59] LABS: Thyroid Stimulating Hormone 1.17 uIU/mL (0.358-3.74)
[2022-02-25] MEDS: LEVOTHYROXINE SODIUM 50 MCG TAB PO SCH (06:23)
[2022-02-25] MEDS: CALCIUM W/VIT D (600MG/400IU) TAB PO SCH ×2 (08:07→17:25)
[2022-02-25 09:00] VITALS: BP 114/44
[2022-02-25] MEDS: FLUTICASONE PROP NASAL SPR 0.05 % (50MCG) 16GM SCH ×2 (09:40→21:05)
[2022-02-25] MEDS: hydrALAZINE HCL 25 MG TAB PO SCH ×2 (09:41→21:40)
[2022-02-25] MEDS: OXYBUTYNIN CHL 5 MG TAB PO SCH ×2 (09:41→21:07)
[2022-02-25] MEDS: SERTRALINE HCL 50 MG TAB PO SCH (09:42)
[2022-02-25] MEDS: CHOLECALCIFEROL (VITD3) 2,000 UNIT CAP/TAB PO SCH (09:42)
[2022-02-25] MEDS: MULTIPLE VITAMINS W/ MINERALS TAB PO SCH (09:42)
[2022-02-25] MEDS ORDERED: ENOXAPARIN SOD 40 MG/0.4 ML SYRINGE SC SCH (10:00)
[2022-02-25] MEDS ORDERED: ASPirin-EC 81 mg tab PO SCH (10:00)
[2022-02-25] MEDS ORDERED: FAMOTIDINE (10MG/ML) 2ML VL IV SCH (10:00)
[2022-02-25 13:00] VITALS: BP 127/63
[2022-02-25] MEDS: ONDANSETRON HCL 4 MG/2 ML VIAL IV PRN (17:27)
[2022-02-25] MEDS ORDERED: cefTRIAXone 1GM/50ML D5W 50 ML IV ONE (20:00)
[2022-02-25] MEDS: ROPINIROLE 0.5 MG PO SCH (21:05)
[2022-02-25] MEDS: ATORVASTATIN 20 MG TAB PO SCH (21:07)
[2022-02-25 22:24] VITALS: BP 102/52
[2022-02-26] MEDS: IPRATROPIUM BROM 0.5 MG/2.5ML INH SOL NEB SCH ×4 (01:31→14:24)
[2022-02-26 02:03] LABS: Alcohol, Urine < 3.0 mg/dL (0-10); Amphetamine Screen, Urine NEGATIVE (NEGATIVE); Barbiturate Scree,Urine NEGATIVE (NEGATIVE); Benzodiazephine Screen, Urine POSITIVE (NEGATIVE); Cannabinoid Screen, Urine NEGATIVE (NEGATIVE); Cocaine Screen, Urine NEGATIVE (NEGATIVE); Opiate Scree,Urine POSITIVE (NEGATIVE); Phencyclidine Screen, Urine NEGATIVE (NEGATIVE)
[2022-02-26 02:28] LABS: Urine Bacteria NONE SEEN /hpf (None Seen); Urine Blood Negative /uL (Negative); Urine Hyaline Cast FEW /lpf (0 - 2); Urine Specific Gravity 1.021 (1.001-1.035); Urine WBC 1 /hpf (0 - 5)
[2022-02-26] MEDS: HYDROmorphone HCL 2 MG/ML VL IV PRN ×2 (04:21→11:03)
[2022-02-26 05:18] VITALS: BP 138/63
[2022-02-26] MEDS: CLINDAMYCIN 600MG IV 50 ML IV SCH ×2 (05:19→14:06)
[2022-02-26] MEDS: LEVOTHYROXINE SODIUM 50 MCG TAB PO SCH (06:11)
[2022-02-26] MEDS: CALCIUM W/VIT D (600MG/400IU) TAB PO SCH (07:25)
[2022-02-26 08:59] VITALS: BP 161/65
[2022-02-26] MEDS ORDERED: cefTRIAXone 1GM/50ML D5W 50 ML IV SCH (09:00)
[2022-02-26] MEDS ORDERED: FAMOTIDINE 20 MG TAB PO SCH (10:00)
[2022-02-26] MEDS: FLUTICASONE PROP NASAL SPR 0.05 % (50MCG) 16GM SCH (10:46)
[2022-02-26] MEDS: MULTIPLE VITAMINS W/ MINERALS TAB PO SCH (10:48)
[2022-02-26] MEDS: OXYBUTYNIN CHL 5 MG TAB PO SCH (10:48)
[2022-02-26] MEDS: hydrALAZINE HCL 25 MG TAB PO SCH (10:48)
[2022-02-26] MEDS: CHOLECALCIFEROL (VITD3) 2,000 UNIT CAP/TAB PO SCH (10:49)
[2022-02-26] MEDS: SERTRALINE HCL 50 MG TAB PO SCH (10:50)
[2022-02-26] MEDS: ONDANSETRON HCL 4 MG/2 ML VIAL IV PRN (11:02)
[2022-02-26 12:45] VITALS: BP 124/49
[2022-02-26] MEDS ORDERED: LACTTAB OR (13:47)
[2022-02-26] MEDS ORDERED: CLIN-203 PO (13:47)
== END 2022-02-26 15:45 | disposition home or self-care (01) | DRG 602 ==
LOC: ER 11:08 → OVERFLOW 15:12 → CENTRAL 18:08
PROVIDERS: ADMIT Hospitalist; ATTEND Internal Medicine
DX: L03.115 Cellulitis of right lower limb (principal); J69.0 Pneumonitis due to inhalation of food and vomit; I50.32 Chronic diastolic (congestive) heart failure; F11.20 Opioid dependence, uncomplicated; I13.0 Hypertensive heart and chronic kidney disease with heart failure and stage 1 through stage 4 chronic kidney disease, or unspecified chronic kidney disease; J47.0 Bronchiectasis with acute lower respiratory infection; N39.0 Urinary tract infection, site not specified; Z66 Do not resuscitate; E03.9 Hypothyroidism, unspecified; E78.5 Hyperlipidemia, unspecified; F32.9 Major depressive disorder, single episode, unspecified; F41.9 Anxiety disorder, unspecified; G25.81 Restless legs syndrome; G89.4 Chronic pain syndrome; M06.9 Rheumatoid arthritis, unspecified; M19.90 Unspecified osteoarthritis, unspecified site; M48.02 Spinal stenosis, cervical region; N18.31 Chronic kidney disease, stage 3a; R58 Hemorrhage, not elsewhere classified; I25.10 Atherosclerotic heart disease of native coronary artery without angina pectoris; M81.0 Age-related osteoporosis without current pathological fracture; N39.41 Urge incontinence; Z79.02 Long term (current) use of antithrombotics/antiplatelets; Z87.891 Personal history of nicotine dependence; Z88.0 Allergy status to penicillin; Z88.8 Allergy status to other drugs, medicaments and biological substances; Z82.49 Family history of ischemic heart disease and other diseases of the circulatory system; Z90.710 Acquired absence of both cervix and uterus; Z95.5 Presence of coronary angioplasty implant and graft
CPT/HCPCS: 36415; 71045; 71275; 73502; 73700; 80053; 80061; 80307; 81001; 82550; 82728; 83605; 83615; 83690; 83735; 83880; 84100; 84443; 84484; 84550; 85025; 85379; 85610; 85652; 85730; 86141; 87040; 87086; 87205; 93925; 93971; 94640; 96365; 96367; 96375; 96376; G0378; J0696; J2405; J3490; J7060

== ENCOUNTER → 2022-12-01 | Outpatient (CLI) | payer MEDICARE, OTHER ==
[~2022-12-01] MED LIST changes: -ASPI-394 PO; +CLIN-203 PO; -CLOP75TA28 PO; +LACTTAB OR
== END | disposition home or self-care (01) ==
LOC: Rad HDHVI 14:16
PROVIDERS: ATTEND Internal Medicine
DX: I08.3 Combined rheumatic disorders of mitral, aortic and tricuspid valves (principal); I11.0 Hypertensive heart disease with heart failure; I50.32 Chronic diastolic (congestive) heart failure; I27.20 Pulmonary hypertension, unspecified; I48.91 Unspecified atrial fibrillation
CPT/HCPCS: 93306

== ENCOUNTER → 2022-12-04 | Outpatient (CLI) | payer MEDICARE, OTHER ==
[~2022-12-04] VITALS: Ht 149.9 cm; Wt 49.0 kg
[~2022-12-04] MED LIST changes: +ADENOSINE 41 MG in GIVE UN-DILUTED 0 ML IV ONE; +ADENOSINE 90 MG/30 ML INJ IV ONE
== END | disposition home or self-care (01) ==
LOC: Rad HDHVI 12:59
PROVIDERS: ATTEND Internal Medicine
DX: R94.31 Abnormal electrocardiogram [ECG] [EKG] (principal); I48.91 Unspecified atrial fibrillation; R00.8 Other abnormalities of heart beat; I25.10 Atherosclerotic heart disease of native coronary artery without angina pectoris; R07.89 Other chest pain; J44.9 Chronic obstructive pulmonary disease, unspecified; I25.2 Old myocardial infarction; I10 Essential (primary) hypertension; E78.5 Hyperlipidemia, unspecified; Z82.49 Family history of ischemic heart disease and other diseases of the circulatory system
CPT/HCPCS: 78452; 93005; 96374; 96375; A9500; J0153

== ENCOUNTER 2023-02-25 21:36 | Inpatient (IN) | payer OTHER ==
[~2023-02-25] VITALS: Ht 157.5 cm; Wt 50.9 kg
[~2023-02-25 21:36] MED LIST changes: -ADENOSINE 41 MG in GIVE UN-DILUTED 0 ML IV ONE; -ADENOSINE 90 MG/30 ML INJ IV ONE
[2023-02-25 22:29] LABS: Basophils # (auto) 0.1 10 ^3/uL (0-0.2); Basophils % (auto) 1.1 % (0.0-2.0); Eosinophils # (auto) 0.1 10 ^3/uL (0-0.8); Hematocrit 40.5 % (36.0-46.0); Hemoglobin 13.2 g/dL (12.2-16.2); Lymphocytes # (auto) 1.3 10 ^3/uL (0.4-5.4); Lymphocytes % (auto) 23.4 % (10.0-50.0); Mean Corpuscular Hemoglobin 32.1 pg (28.0-32.0); Mean Corpuscular Hgb Conc. 32.6 g/dL (32.0-36.0); Mean Corpuscular Volume 98.3 fL (80.0-100.0); Monocytes # (auto) 0.5 10 ^3/uL (0-1.3); Monocytes % (auto) 9.2 % (0.0-12.0); Neutrophils # (auto) 3.6 10 ^3/uL (1.6-8.6); Neutrophils % (auto) 65.3 % (37.0-80.0); Nucleated Red Blood Cells % 0.2 %; Red Blood Cells 4.12 10^6/uL (4.0-5.20); Red Cell Distribution Width 15.8 % (11.8-14.3); White Blood Cell 5.5 10^3/uL (4.4-10.8)
[2023-02-25 22:45] LABS: INR 1.03 (0.9-1.15); Partial Thromboplastin Time 25.6 sec (24.6-33.4)
[2023-02-25 22:49] LABS: Albumin 3.9 g/dL (3.4-5.0); Calcium 9.3 mg/dL (8.5-10.1); Potassium 3.5 mmol/L (3.5-5.1)
[2023-02-25 22:50] LABS: BUN/Creatinine Ratio 18.1 (10.0-20.0)
[2023-02-25 22:53] LABS: Bilirubin, Total 0.9 mg/dL (0.2-1.0); Total Protein 7.1 g/dL (6.4-8.2)
[2023-02-25] MEDS ORDERED: MORPHINE SULFATE 4 MG/ML SYR/VIAL IV ONE (23:00)
[2023-02-25] MEDS ORDERED: ONDANSETRON HCL 4 MG/2 ML VIAL IV ONE (23:00)
[2023-02-25] MEDS ORDERED: ALBUTEROL SULF 2.5 MG/0.5ML(0.5%) NEB SOLN NEB ONE (23:00)
[2023-02-25] MEDS ORDERED: HEPARIN SODIUM (PORCINE) 5000 UNITS/ML 1ML VIAL IV ONE (23:15)
[2023-02-25] MEDS ORDERED: HEPARIN DRIP/D5W 100UNITS/ML 250 ML IV SCH (23:15)
[2023-02-25] MEDS ORDERED: FUROSEMIDE 40 MG/4 ML VIAL IV ONE (23:15)
[2023-02-25] MEDS ORDERED: ASPirin 325 MG TAB PO ONE (23:15)
[2023-02-26] VITALS (9 sets, daily range): BP systolic 132–168; BP diastolic 56–88
[2023-02-26] MEDS ORDERED: cloNIDine HCL 0.1 MG TAB PO PRN (00:45)
[2023-02-26] MEDS ORDERED: ONDANSETRON HCL 4 MG/2 ML VIAL IV PRN (00:45)
[2023-02-26] MEDS ORDERED: NITROGLYCERIN 0.4 MG SL TAB SL PRN (00:45)
[2023-02-26] MEDS ORDERED: ACETAMINOPHEN 325 MG TAB PO PRN (00:45)
[2023-02-26] MEDS ORDERED: OXYCODONE W/ ACETAMINOPHEN 5/325MG TABLET PO ONE ×3 (01:15→14:30)
[2023-02-26] MEDS ORDERED: BUSP10TA90 PO (05:36)
[2023-02-26] MEDS ORDERED: AMLO-489 PO (05:36)
[2023-02-26] MEDS: LEVOTHYROXINE SODIUM 50 MCG TAB PO SCH (06:26)
[2023-02-26] MEDS: MORPHINE SULFATE INJ 2 MG/ml SYRG IV PRN ×2 (07:22→16:52)
[2023-02-26 07:42] LABS: INR 1.08 (0.9-1.15)
[2023-02-26] MEDS ORDERED: IOHEXOL 350 MG/ML 100ML IJ ONE (08:34)
[2023-02-26] MEDS ORDERED: HEPARIN DRIP/D5W 100UNITS/ML 250 ML IV SCH (09:45)
[2023-02-26] MEDS: PANTOPRAZOLE 40 MG TAB PO SCH (09:53)
[2023-02-26] MEDS: ASPirin 81 mg TAB PO SCH (09:53)
[2023-02-26] MEDS: CLOPIDOGREL BISULFATE 75 MG TAB PO SCH (09:53)
[2023-02-26] MEDS: amLODIPine BESYLATE 5 MG TAB PO SCH (09:53)
[2023-02-26] MEDS ORDERED: CLINDAMYCIN 300MG IV 50 ML IV SCH (10:00)
[2023-02-26] MEDS: FUROSEMIDE 40 MG TAB PO SCH (10:00)
[2023-02-26] MEDS ORDERED: ALBUTEROL SULF 2.5 MG/0.5ML(0.5%) NEB SOLN NEB PRN (12:00)
[2023-02-26] MEDS ORDERED: BACLOFEN 10 MG TAB PO PRN (12:00)
[2023-02-26] MEDS: DOXYCYCLINE 100MG/250ML 250 ML IV SCH ×2 (12:19→22:53)
[2023-02-26] MEDS: busPIRone HCL 10 MG TAB PO SCH ×2 (13:00→19:53)
[2023-02-26] MEDS ORDERED: CLINDAMYCIN HCL 150 MG CAP PO SCH (13:00)
[2023-02-26] MEDS: BACLOFEN 10 MG TAB PO PRN (14:17)
[2023-02-26] MEDS: IPRATROPIUM BROM 0.5 MG/2.5ML INH SOL NEB PRN (16:54)
[2023-02-26] MEDS: ALBUTEROL SULF 2.5 MG/0.5ML(0.5%) NEB SOLN NEB PRN (16:54)
[2023-02-26] MEDS: ATORVASTATIN 20 MG TAB PO SCH (19:54)
[2023-02-26] MEDS: CLINDAMYCIN HCL 150 MG CAP PO SCH (19:54)
[2023-02-26] MEDS: SERTRALINE HCL 50 MG TAB PO SCH (19:55)
[2023-02-26] MEDS: OXYCODONE W/ ACETAMINOPHEN 5/325MG TABLET PO PRN (19:56)
[2023-02-27] VITALS (7 sets, daily range): BP systolic 100–170; BP diastolic 63–91
[2023-02-27] MEDS: OXYCODONE W/ ACETAMINOPHEN 5/325MG TABLET PO PRN ×3 (02:05→20:33)
[2023-02-27] MEDS: ALBUTEROL SULF 2.5 MG/0.5ML(0.5%) NEB SOLN NEB PRN ×2 (06:02→14:16)
[2023-02-27] MEDS: IPRATROPIUM BROM 0.5 MG/2.5ML INH SOL NEB PRN ×2 (06:02→14:16)
[2023-02-27] MEDS: LEVOTHYROXINE SODIUM 50 MCG TAB PO SCH (06:18)
[2023-02-27 07:16] LABS: Basophils # (auto) 0 10 ^3/uL (0-0.2); Basophils % (auto) 0.6 % (0.0-2.0); Eosinophils # (auto) 0.2 10 ^3/uL (0-0.8); Eosinophils % (auto) 2.7 % (0.0-7.0); Hematocrit 38.3 % (36.0-46.0); Hemoglobin 12.9 g/dL (12.2-16.2); Lymphocytes # (auto) 1.4 10 ^3/uL (0.4-5.4); Lymphocytes % (auto) 24.4 % (10.0-50.0); Mean Corpuscular Hemoglobin 32.8 pg (28.0-32.0); Mean Corpuscular Hgb Conc. 33.8 g/dL (32.0-36.0); Mean Corpuscular Volume 97.1 fL (80.0-100.0); Monocytes # (auto) 0.6 10 ^3/uL (0-1.3); Neutrophils # (auto) 3.5 10 ^3/uL (1.6-8.6); Neutrophils % (auto) 61.3 % (37.0-80.0); Nucleated Red Blood Cells % 0.3 %; Red Blood Cells 3.95 10^6/uL (4.0-5.20); Red Cell Distribution Width 15.6 % (11.8-14.3); White Blood Cell 5.6 10^3/uL (4.4-10.8)
[2023-02-27] MEDS: ASPirin 81 mg TAB PO SCH (09:40)
[2023-02-27] MEDS: CLOPIDOGREL BISULFATE 75 MG TAB PO SCH (09:41)
[2023-02-27] MEDS: CLINDAMYCIN HCL 150 MG CAP PO SCH ×2 (09:41→20:32)
[2023-02-27] MEDS: PANTOPRAZOLE 40 MG TAB PO SCH (09:42)
[2023-02-27] MEDS: amLODIPine BESYLATE 5 MG TAB PO SCH (09:42)
[2023-02-27] MEDS: busPIRone HCL 10 MG TAB PO SCH ×2 (09:47→20:31)
[2023-02-27 10:04] LABS: Calcium 8.9 mg/dL (8.5-10.1); Potassium 3.9 mmol/L (3.5-5.1)
[2023-02-27 10:07] LABS: BUN/Creatinine Ratio 28.4 (10.0-20.0); Bilirubin, Total 0.6 mg/dL (0.2-1.0); Total Protein 5.8 g/dL (6.4-8.2)
[2023-02-27] MEDS: DOXYCYCLINE 100MG/250ML 250 ML IV SCH ×2 (10:19→20:30)
[2023-02-27] MEDS: FUROSEMIDE 40 MG TAB PO SCH (11:00)
[2023-02-27] MEDS: MORPHINE SULFATE INJ 2 MG/ml SYRG IV PRN ×3 (11:00→22:19)
[2023-02-27] MEDS: BACLOFEN 10 MG TAB PO PRN (13:24)
[2023-02-27] MEDS: ATORVASTATIN 20 MG TAB PO SCH (20:32)
[2023-02-27] MEDS: SERTRALINE HCL 50 MG TAB PO SCH (20:33)
[2023-02-28] MEDS: ALBUTEROL SULF 2.5 MG/0.5ML(0.5%) NEB SOLN NEB PRN ×2 (00:31→05:15)
[2023-02-28] MEDS: IPRATROPIUM BROM 0.5 MG/2.5ML INH SOL NEB PRN ×2 (00:32→05:15)
[2023-02-28] MEDS: MORPHINE SULFATE INJ 2 MG/ml SYRG IV PRN ×2 (02:32→09:39)
[2023-02-28 05:00] VITALS: BP 158/73
[2023-02-28] MEDS: LEVOTHYROXINE SODIUM 50 MCG TAB PO SCH (05:07)
[2023-02-28] MEDS: OXYCODONE W/ ACETAMINOPHEN 5/325MG TABLET PO PRN (05:07)
[2023-02-28 08:00] VITALS: BP 145/67
[2023-02-28 09:00] VITALS: BP 145/67
[2023-02-28] MEDS: DOXYCYCLINE 100MG/250ML 250 ML IV SCH (09:37)
[2023-02-28] MEDS: CLINDAMYCIN HCL 150 MG CAP PO SCH (09:39)
[2023-02-28] MEDS: CLOPIDOGREL BISULFATE 75 MG TAB PO SCH (09:40)
[2023-02-28] MEDS: PANTOPRAZOLE 40 MG TAB PO SCH (09:40)
[2023-02-28] MEDS: ASPirin 81 mg TAB PO SCH (09:40)
[2023-02-28] MEDS: busPIRone HCL 10 MG TAB PO SCH (09:40)
[2023-02-28] MEDS: amLODIPine BESYLATE 5 MG TAB PO SCH (09:40)
[2023-02-28] MEDS: FUROSEMIDE 40 MG TAB PO SCH (09:41)
[2023-02-28 11:50] VITALS: BP 145/67
[2023-02-28 13:00] VITALS: BP 147/76
== END 2023-02-28 13:50 | disposition hospice, home (50) | DRG 280 ==
LOC: EDBD 21:36 → ER 21:36 → TELE 02-26 00:40 → TELE-CENTR 02-26 04:50
PROVIDERS: ADMIT Nurse Practitioner; ATTEND Internal Medicine
DX: I21.4 Non-ST elevation (NSTEMI) myocardial infarction (principal); I50.33 Acute on chronic diastolic (congestive) heart failure; J96.01 Acute respiratory failure with hypoxia; L03.115 Cellulitis of right lower limb; I11.0 Hypertensive heart disease with heart failure; E87.8 Other disorders of electrolyte and fluid balance, not elsewhere classified; F32.A Depression, unspecified; G89.4 Chronic pain syndrome; I25.10 Atherosclerotic heart disease of native coronary artery without angina pectoris; J44.9 Chronic obstructive pulmonary disease, unspecified; K21.9 Gastro-esophageal reflux disease without esophagitis; M19.90 Unspecified osteoarthritis, unspecified site; Z51.5 Encounter for palliative care; Z79.891 Long term (current) use of opiate analgesic; Z82.49 Family history of ischemic heart disease and other diseases of the circulatory system; Z88.0 Allergy status to penicillin; Z90.710 Acquired absence of both cervix and uterus; Z88.8 Allergy status to other drugs, medicaments and biological substances
CPT/HCPCS: 36415; 71045; 80053; 83735; 83880; 84484; 85025; 85379; 85610; 85730; 93005; 94640; 96365; 96375; 97163; 99291; G0378; J2405; J3490

== ENCOUNTER 2023-04-09 13:35 | Inpatient (IN) | payer OTHER ==
[~2023-04-09] VITALS: Ht 160 cm; Wt 50.3 kg
[~2023-04-09 13:35] MED LIST changes: -ALPR0.5T7 PO; +AMLO1TAB22 PO; +BUSP10TA90 PO; -CLIN-203 PO; +ECHI400C2 PO; -FLUT1SPR5; +OXYB5TAB10 PO; -OXYB5TAB61 PO; -ROPI0.5T18 PO; +ROPI0.5T4 PO; -SERT-160 PO; -[UNRECOGNIZED DRUG - CODE] PO
[2023-04-09 14:59] LABS: Basophils # (auto) 0.1 10 ^3/uL (0-0.2); Eosinophils # (auto) 0 10 ^3/uL (0-0.8); Eosinophils % (auto) 0.7 % (0.0-7.0); Hematocrit 40.7 % (36.0-46.0); Hemoglobin 13.5 g/dL (12.2-16.2); Lymphocytes # (auto) 0.9 10 ^3/uL (0.4-5.4); Lymphocytes % (auto) 17.4 % (10.0-50.0); Mean Corpuscular Hgb Conc. 33.3 g/dL (32.0-36.0); Mean Corpuscular Volume 96.1 fL (80.0-100.0); Monocytes # (auto) 0.6 10 ^3/uL (0-1.3); Monocytes % (auto) 12.1 % (0.0-12.0); Neutrophils # (auto) 3.7 10 ^3/uL (1.6-8.6); Neutrophils % (auto) 68.8 % (37.0-80.0); Nucleated Red Blood Cells % 0.1 %; Red Blood Cells 4.24 10^6/uL (4.0-5.20); Red Cell Distribution Width 15.6 % (11.8-14.3); White Blood Cell 5.3 10^3/uL (4.4-10.8)
[2023-04-09 15:09] LABS: Alanine Aminotransferase 120 U/L (13-56); Albumin 3.6 g/dL (3.4-5.0); Anion Gap 10 (5-15); BUN/Creatinine Ratio 38.8 (10.0-20.0); Blood Alcohol < 3.0 mg/dL (0-5); Blood Urea Nitrogen 57 mg/dL (7-18); Calcium 8.7 mg/dL (8.5-10.1); Carbon Dioxide 26 mmol/L (21-32); Chloride 107 mmol/L (98-107); GFR African American 43 mL/min; GFR Non-African American 36 mL/min; Glucose 176 mg/dL (74-106); Magnesium 2.5 mg/dL (1.6-2.6); Potassium 3.4 mmol/L (3.5-5.1); Sodium 143 mmol/L (136-145)
[2023-04-09 15:12] LABS: Alkaline Phosphatase 71 U/L (45-117); Aspartate Aminotransferase 130 U/L (15-37); Bilirubin, Total 0.6 mg/dL (0.2-1.0)
[2023-04-09 15:28] LABS: INR 1.08 (0.9-1.15); Partial Thromboplastin Time 23.7 sec (24.6-33.4)
[2023-04-09] MEDS ORDERED: ALBUTEROL SULF 2.5 MG/0.5ML(0.5%) NEB SOLN NEB PRN (16:45)
[2023-04-09] MEDS ORDERED: DOCUSATE SOD 100 MG CAP PO PRN (16:45)
[2023-04-09] MEDS ORDERED: IPRATROPIUM BROM 0.5 MG/2.5ML INH SOL NEB PRN (16:45)
[2023-04-09] MEDS ORDERED: ONDANSETRON HCL 4 MG/2 ML VIAL IV PRN (16:45)
[2023-04-09] MEDS ORDERED: POTASSIUM EFFERVESENT TAB 25 MEQ PO ONE (17:00)
[2023-04-09] MEDS: ACCU-CHEK COMFORT CURVE STRIP VI SCH ×2 (17:00→22:00)
[2023-04-09] MEDS ORDERED: DEXTROSE (50%) 50ML SYRG IV PRN (17:00)
[2023-04-09] MEDS ORDERED: SODIUM CHLORIDE 0.9% 500 ML IV ONE (17:00)
[2023-04-09] MEDS: cloNIDine HCL 0.1 MG TAB PO SCH ×2 (18:00→22:00)
[2023-04-09] MEDS: ATORVASTATIN 20 MG TAB PO SCH (23:12)
[2023-04-09] MEDS: busPIRone HCL 10 MG TAB PO SCH (23:13)
[2023-04-09] MEDS: hydrALAZINE HCL 25 MG TAB PO SCH (23:13)
[2023-04-09] MEDS: OXYBUTYNIN CHL 5 MG TAB PO SCH (23:14)
[2023-04-10] MEDS: cloNIDine HCL 0.1 MG TAB PO SCH ×6 (02:00→22:37)
[2023-04-10] MEDS: MORPHINE SULFATE INJ 2 MG/ml SYRG IV PRN ×3 (03:22→13:18)
[2023-04-10 03:26] VITALS: BP 137/73
[2023-04-10 05:16] LABS: Basophils # (auto) 0 10 ^3/uL (0-0.2); Basophils % (auto) 0.8 % (0.0-2.0); Eosinophils # (auto) 0.1 10 ^3/uL (0-0.8); Eosinophils % (auto) 2.4 % (0.0-7.0); Hematocrit 37.6 % (36.0-46.0); Hemoglobin 12.8 g/dL (12.2-16.2); Lymphocytes # (auto) 1.2 10 ^3/uL (0.4-5.4); Lymphocytes % (auto) 25.1 % (10.0-50.0); Mean Corpuscular Hemoglobin 32.4 pg (28.0-32.0); Mean Corpuscular Volume 95.4 fL (80.0-100.0); Monocytes # (auto) 0.6 10 ^3/uL (0-1.3); Monocytes % (auto) 12.4 % (0.0-12.0); Neutrophils # (auto) 2.9 10 ^3/uL (1.6-8.6); Neutrophils % (auto) 59.3 % (37.0-80.0); Nucleated Red Blood Cells % 0.1 %; Red Blood Cells 3.95 10^6/uL (4.0-5.20); Red Cell Distribution Width 15.6 % (11.8-14.3)
[2023-04-10 05:36] LABS: Albumin 3.1 g/dL (3.4-5.0); Calcium 8.4 mg/dL (8.5-10.1)
[2023-04-10 05:42] LABS: BUN/Creatinine Ratio 62.9 (10.0-20.0); Bilirubin, Total 0.6 mg/dL (0.2-1.0); Total Protein 5.7 g/dL (6.4-8.2)
[2023-04-10 06:06] LABS: Urine Bacteria NONE SEEN /hpf (None Seen); Urine Blood TRACE /uL (Negative); Urine Specific Gravity 1.021 (1.001-1.035); Urine WBC 5 /hpf (0 - 5)
[2023-04-10 06:12] LABS: Creatinine, Urine 99 mg/dL (30.0-125.0); Sodium Urine 48 mmol/L (40-220)
[2023-04-10] MEDS: ACCU-CHEK COMFORT CURVE STRIP VI SCH (06:52)
[2023-04-10] MEDS: amLODIPine BESYLATE 5 MG TAB PO SCH (10:00)
[2023-04-10] MEDS ORDERED: PANTOPRAZOLE 40 MG/10 ML VIAL INJ IV SCH (10:00)
[2023-04-10] MEDS: PANTOPRAZOLE 40 MG TAB PO SCH (10:00)
[2023-04-10] MEDS: OXYBUTYNIN CHL 5 MG TAB PO SCH ×2 (10:00→22:37)
[2023-04-10] MEDS: hydrALAZINE HCL 25 MG TAB PO SCH ×2 (10:00→22:36)
[2023-04-10] MEDS: busPIRone HCL 10 MG TAB PO SCH ×2 (10:00→22:36)
[2023-04-10] MEDS: CLOPIDOGREL BISULFATE 75 MG TAB PO SCH (10:00)
[2023-04-10] MEDS: ASPirin 81 mg TAB PO SCH (10:00)
[2023-04-10] MEDS ORDERED: MORPHINE SULFATE INJ 2 MG/ml SYRG IV PRN (12:00)
[2023-04-10 13:00] VITALS: BP 103/46
[2023-04-10 17:00] VITALS: BP 141/64
[2023-04-10] MEDS: OXYCODONE W/ ACETAMINOPHEN 5/325MG TABLET PO PRN ×2 (18:54→23:26)
[2023-04-10] MEDS: ATORVASTATIN 20 MG TAB PO SCH (22:38)
[2023-04-11] MEDS: cloNIDine HCL 0.1 MG TAB PO SCH ×6 (01:52→22:04)
[2023-04-11 09:00] VITALS: BP 130/51
[2023-04-11] MEDS ORDERED: methylPREDNISolone SOD SUCC 40 MG/ML VL IV ONE (09:00)
[2023-04-11] MEDS: MORPHINE SULFATE INJ 2 MG/ml SYRG IV PRN ×3 (09:13→23:10)
[2023-04-11] MEDS: busPIRone HCL 10 MG TAB PO SCH ×2 (09:13→22:04)
[2023-04-11] MEDS: OXYBUTYNIN CHL 5 MG TAB PO SCH ×2 (09:14→22:05)
[2023-04-11] MEDS: PANTOPRAZOLE 40 MG TAB PO SCH (09:14)
[2023-04-11] MEDS: ASPirin 81 mg TAB PO SCH (09:14)
[2023-04-11] MEDS: CLOPIDOGREL BISULFATE 75 MG TAB PO SCH (09:15)
[2023-04-11] MEDS: amLODIPine BESYLATE 5 MG TAB PO SCH (09:15)
[2023-04-11] MEDS: hydrALAZINE HCL 25 MG TAB PO SCH ×2 (09:19→22:03)
[2023-04-11] MEDS: DOXYCYCLINE 100 MG TAB/CAP PO SCH ×2 (09:24→22:04)
[2023-04-11] MEDS: OXYCODONE W/ ACETAMINOPHEN 5/325MG TABLET PO PRN (12:28)
[2023-04-11 13:00] VITALS: BP 142/67
[2023-04-11] MEDS ORDERED: BACL10TA PO (13:20)
[2023-04-11] MEDS: BACLOFEN 10 MG TAB PO PRN (15:01)
[2023-04-11 17:00] VITALS: BP 125/65
[2023-04-11 22:00] VITALS: BP 129/77
[2023-04-11] MEDS: ATORVASTATIN 20 MG TAB PO SCH (22:05)
[2023-04-12] VITALS (7 sets, daily range): BP systolic 90–144; BP diastolic 49–73
[2023-04-12] MEDS: cloNIDine HCL 0.1 MG TAB PO SCH ×6 (01:21→22:00)
[2023-04-12] MEDS: OXYCODONE W/ ACETAMINOPHEN 5/325MG TABLET PO PRN ×2 (05:45→20:14)
[2023-04-12] MEDS: BACLOFEN 10 MG TAB PO PRN ×2 (07:07→20:14)
[2023-04-12] MEDS: amLODIPine BESYLATE 5 MG TAB PO SCH (10:24)
[2023-04-12] MEDS: MORPHINE SULFATE INJ 2 MG/ml SYRG IV PRN ×3 (10:24→21:52)
[2023-04-12] MEDS: ASPirin 81 mg TAB PO SCH (10:24)
[2023-04-12] MEDS: DOXYCYCLINE 100 MG TAB/CAP PO SCH ×2 (10:24→23:09)
[2023-04-12] MEDS: OXYBUTYNIN CHL 5 MG TAB PO SCH ×2 (10:24→23:10)
[2023-04-12] MEDS: predniSONE 20 MG TAB PO SCH (10:25)
[2023-04-12] MEDS: PANTOPRAZOLE 40 MG TAB PO SCH (10:25)
[2023-04-12] MEDS: hydrALAZINE HCL 25 MG TAB PO SCH ×2 (10:25→22:00)
[2023-04-12] MEDS: CLOPIDOGREL BISULFATE 75 MG TAB PO SCH (10:25)
[2023-04-12] MEDS: busPIRone HCL 10 MG TAB PO SCH ×2 (10:25→23:09)
[2023-04-12] MEDS: ATORVASTATIN 20 MG TAB PO SCH (23:15)
[2023-04-13] MEDS: OXYCODONE W/ ACETAMINOPHEN 5/325MG TABLET PO PRN ×4 (00:26→23:39)
[2023-04-13] MEDS: cloNIDine HCL 0.1 MG TAB PO SCH ×6 (02:21→22:00)
[2023-04-13] MEDS: MORPHINE SULFATE INJ 2 MG/ml SYRG IV PRN ×5 (02:22→21:06)
[2023-04-13 05:00] VITALS: BP 146/76
[2023-04-13] MEDS: BACLOFEN 10 MG TAB PO PRN ×3 (06:10→22:28)
[2023-04-13] MEDS: DOXYCYCLINE 100 MG TAB/CAP PO SCH ×2 (08:39→21:12)
[2023-04-13] MEDS: amLODIPine BESYLATE 5 MG TAB PO SCH (08:40)
[2023-04-13] MEDS: CLOPIDOGREL BISULFATE 75 MG TAB PO SCH (08:40)
[2023-04-13] MEDS: hydrALAZINE HCL 25 MG TAB PO SCH ×2 (08:40→21:13)
[2023-04-13] MEDS: predniSONE 20 MG TAB PO SCH (08:41)
[2023-04-13] MEDS: PANTOPRAZOLE 40 MG TAB PO SCH (08:41)
[2023-04-13] MEDS: busPIRone HCL 10 MG TAB PO SCH ×2 (08:41→21:12)
[2023-04-13] MEDS: OXYBUTYNIN CHL 5 MG TAB PO SCH ×2 (08:41→21:13)
[2023-04-13] MEDS: ASPirin 81 mg TAB PO SCH (08:41)
[2023-04-13 09:00] VITALS: BP 135/63
[2023-04-13 13:00] VITALS: BP 120/67
[2023-04-13 17:00] VITALS: BP 140/79
[2023-04-13] MEDS: ATORVASTATIN 20 MG TAB PO SCH (21:12)
[2023-04-13 22:00] VITALS: BP 122/57
[2023-04-13] MEDS ORDERED: ALBUTEROL SULF 2.5 MG/0.5ML(0.5%) NEB SOLN NEB ONE (22:45)
[2023-04-13] MEDS ORDERED: ALBUTEROL SULF 2.5 MG/0.5ML(0.5%) NEB SOLN NEB PRN (22:45)
[2023-04-13] MEDS ORDERED: ALBUTEROL SULF 2.5 MG/0.5ML(0.5%) NEB SOLN ONE (22:54)
[2023-04-14] MEDS: MORPHINE SULFATE INJ 2 MG/ml SYRG IV PRN ×4 (00:06→09:15)
[2023-04-14] MEDS: cloNIDine HCL 0.1 MG TAB PO SCH ×3 (01:31→10:38)
[2023-04-14] MEDS: OXYCODONE W/ ACETAMINOPHEN 5/325MG TABLET PO PRN (04:44)
[2023-04-14 05:00] VITALS: BP 116/77
[2023-04-14] MEDS: BACLOFEN 10 MG TAB PO PRN (06:18)
[2023-04-14] MEDS: predniSONE 20 MG TAB PO SCH (08:39)
[2023-04-14] MEDS: CLOPIDOGREL BISULFATE 75 MG TAB PO SCH (08:39)
[2023-04-14] MEDS: DOXYCYCLINE 100 MG TAB/CAP PO SCH (08:39)
[2023-04-14] MEDS: amLODIPine BESYLATE 5 MG TAB PO SCH (08:39)
[2023-04-14] MEDS: busPIRone HCL 10 MG TAB PO SCH (08:39)
[2023-04-14] MEDS: ASPirin 81 mg TAB PO SCH (08:40)
[2023-04-14] MEDS: PANTOPRAZOLE 40 MG TAB PO SCH (08:40)
[2023-04-14] MEDS: hydrALAZINE HCL 25 MG TAB PO SCH (08:40)
[2023-04-14] MEDS: OXYBUTYNIN CHL 5 MG TAB PO SCH (08:40)
[2023-04-14 08:46] VITALS: BP 112/47
[2023-04-14 09:42] VITALS: BP 125/57
== END 2023-04-14 10:40 | disposition hospice, home (50) | DRG 180 ==
LOC: ER 13:35 → EDBD 13:35 → TELE 16:39 → TELE-WESTW 04-10 11:30
PROVIDERS: ADMIT Nurse Practitioner Family; ATTEND Internal Medicine
DX: C34.90 Malignant neoplasm of unspecified part of unspecified bronchus or lung (principal); G93.41 Metabolic encephalopathy; I21.A1 Myocardial infarction type 2; J96.21 Acute and chronic respiratory failure with hypoxia; S32.511A Fracture of superior rim of right pubis, initial encounter for closed fracture; N17.9 Acute kidney failure, unspecified; J44.9 Chronic obstructive pulmonary disease, unspecified; Z66 Do not resuscitate; K21.9 Gastro-esophageal reflux disease without esophagitis; I11.0 Hypertensive heart disease with heart failure; M45.9 Ankylosing spondylitis of unspecified sites in spine; F32.A Depression, unspecified; I48.91 Unspecified atrial fibrillation; J84.10 Pulmonary fibrosis, unspecified; I25.10 Atherosclerotic heart disease of native coronary artery without angina pectoris; E87.6 Hypokalemia; F41.9 Anxiety disorder, unspecified; E16.2 Hypoglycemia, unspecified; I50.9 Heart failure, unspecified; M25.551 Pain in right hip; W18.39XA Other fall on same level, initial encounter; G89.4 Chronic pain syndrome; Z95.5 Presence of coronary angioplasty implant and graft; Z88.0 Allergy status to penicillin; Z99.81 Dependence on supplemental oxygen; Z90.710 Acquired absence of both cervix and uterus; Z82.49 Family history of ischemic heart disease and other diseases of the circulatory system; Y93.89 Activity, other specified; Y92.89 Other specified places as the place of occurrence of the external cause; Y99.8 Other external cause status
CPT/HCPCS: 36415; 70450; 71045; 71250; 72125; 72192; 80053; 80320; 81001; 82570; 82962; 83605; 83735; 84300; 84484; 85025; 85610; 85730; 93005; 94640; 96361; 96374; 96375; 99291; G0378; J2405